=== PATIENT | female | born 1945 | race Two or more races ===

== ENCOUNTER 2023-02-04 23:59 | Outpatient (BNV) | payer MEDICARE, SELFPAY | END 2023-02-06 23:59 | PROVIDERS: Visit Provider Internal Medicine | DX: I48.0 Paroxysmal atrial fibrillation (principal); R78.81 Bacteremia; N18.6 End stage renal disease; Z99.2 Dependence on renal dialysis | CPT/HCPCS: 99223 ==

== ENCOUNTER 2024-01-12 10:39 | Outpatient (AMB) | payer MEDICARE, SELFPAY ==
--- NOTE | 2024-01-12 10:42 | MHC.OFFVIS ---
Vital Signs 01/12/24 10:47 Height 4 ft 9 in Intake Visit Reasons: [employer]/PCP referral for LE swelling Intake Note: [employer] for bilateral LE swelling, Right LE worse than the left LE. She has had swelling for many years but has had pain since April. States she had a large lump on her leg that drained internally and went to [facility] to get flushed and was seen by woundcare after and has had pain since. Also had another lump drained 2 weeks ago at [facility]. Does have bilateral discoloration. Accompanied by: grandson & Daughter Proxy Allergies No Known Allergies Allergy (Verified 01/12/24 10:50) HPI HPI [employer]/PCP referral for LE swelling: Details: Jazmin, a pleasant Japanese-speaking only 78-year-old female patient, is presenting today with a couple of family members for concerns bilateral lower extremity pain, swelling, and cool feet. She does walk at home, with a walker, but only with assistance. Complaints include pain, swelling of lower extremities, cramping, fatigue, and heaviness of the lower extremities. It has been affecting their daily activities including walking and standing. It is noted more so in her left foot. She has a history of end-stage renal disease and does have hemodialysis on Mondays, Wednesdays, and Fridays. She does have diabetes but is a nonsmoker. She is status post seroma removal on the right ankle in the [place] [facility] from approximately 2 weeks ago. Her family has changing her dressings. Patient denies any previous venous surgery or injections. Patient denies any history of DVT/ PE. Patient denies any history of phlebitis. Trial of compression includes - compression stockings with a little relief. They now present for vascular evaluation regarding their varicose veins. [facility] Medical History (Updated 01/12/24 @ 11:14 by Veronica Solo PA-C) Afib Hypothyroidism DM2 (diabetes mellitus, type 2) ESRD (end stage renal disease) Social History (Updated 01/12/24 @ 10:52 by BRADEN Rosado) Patient Tobacco Use Status: Former Tobacco user Review of Systems Const Reports as per HPI and Denies weakness ENT Reports Normal hearing present and Denies dizziness Card Reports as per HPI, Denies chest pain, Denies chest pain at rest, Denies chest pain with activity, Denies dyspnea and Denies dyspnea on exertion Resp Reports as per HPI, Denies cough, Denies dyspnea and Denies dyspnea on exertion GI Reports as per HPI, Denies abdominal pain, Denies nausea and Denies vomiting Musc Denies numbness Skin/Breast Reports as per HPI, Denies erythema and Denies wounds Neuro Reports Normal hearing present, Denies dizziness, Denies numbness, Denies Sensory deficit (Neuro) and Denies weakness Psych Reports no additional complaints Endo Reports no additional complaints Physical Exam Const General: healthy appearing and no acute distress Orientation/consciousness: patient oriented x3 HEENT Head: Yes normal to inspection Ears: hearing grossly normal bilaterally Mouth: Normal oral and palatal mucosa present Resp Effort & Inspection: normal respiratory effort and able to speak in complete sentences Auscultation: clear to auscultation bilaterally Cardio Jugular venous distension: no JVD Rate: regular rate Rhythm: regular rhythm Heart sounds: S1 normal heart sound present and S2 normal heart sound present Bruits: no abdominal aortic bruits, no carotid bruits, no femoral bruits and no renal bruits Peripheral pulses: Peripheral pulses 2+ throughout GI Inspection: Yes normal to inspection Palpation (GI): No Abdominal aortic bruit present Skin General skin exam: no rashes or lesions noted Wounds: no wounds Hair: normal Neuro General: patient oriented x3 Cranial nerves: Yes Normal hearing present Cognition (Neuro): normal cognition Gait exam (Neuro): Normal gait present Motor exam (neuro): 5/5 motor strength present throughout Sensory Exam: No Sensory deficit (Neuro) Extrem Other: Bilateral lower extremities: Discoloration noted from the mid pickard down to the toes. Feet cool to the touch but palpable DP pulses. Trace peripheral edema noted CEAP: C - 4 E - primary A - superficial P - reflux General: Yes normal to inspection, Yes full ROM, Yes capillary refill normal and Yes normal gait Assessment & Plan Assessment & Plan (1) Varicose veins of both lower extremities with inflammation: Code(s): I83.11 - Varicose veins of right lower extremity with inflammation; I83.12 - Varicose veins of left lower extremity with inflammation Category: Medical Plan: Jazmin is presenting today for a referral for ongoing bilateral lower extremity swelling, pain, and coolness to her extremities, particularly her feet. In short, the patient has evidence of venous insufficiency. I have discussed the pathophysiology with the patient. In addition I have provided informational material regarding venous disease to the patient. We have discussed conservative measures including compression, elevation, and exercise. The patient has been using her own compression stockings and did not need a handout about compression. I have taken the liberty of ordering venous insufficiency testing with the patient. They will follow up with me after testing. The patient had an opportunity to ask questions regarding the treatment plan. All questions were answered. No major barriers to understanding were identified. The patient expressed understanding and agreement with the above treatment plan. The patient is aware they should contact our office by phone for worsening of the current condition or the appearance of new symptoms. Thank you for allowing me to participate in the vascular care of this patient. If you have any questions or concerns regarding the treatment for the above condition please do not hesitate to contact me. The office telephone contact is [phone]. This note is constructed using voice recognition software. While every effort has been made to ensure accuracy, servicer coin machines errors may have been included. Thank you for allowing me to participate in the care of your patient. Yours sincerely, ROCÍO Pena Orders: Orders US venous duplex LE BI 1 Week I83.11 - Varicose veins of right lower extremity with inflammation, I83.12 - Varicose veins of left lower extremity with inflammation Coding Level of Care Code New Pt Level 4 (95226) Diagnoses Varicose veins of both lower extremities with inflammation I83.11; I83.12
== END 2024-01-12 11:17 | disposition home or self-care (01) ==
PROVIDERS: Visit Provider Physician Assistant Surgical
DX: I83.11 Varicose veins of right lower extremity with inflammation (principal); I83.12 Varicose veins of left lower extremity with inflammation
CPT/HCPCS: 99204

== ENCOUNTER → 2024-01-12 10:39 | Outpatient (BNVA) | payer MEDICARE, SELFPAY | PROVIDERS: Visit Provider Physician Assistant Surgical | DX: I83.11 Varicose veins of right lower extremity with inflammation (principal); I83.12 Varicose veins of left lower extremity with inflammation | CPT/HCPCS: 99202 ==

== ENCOUNTER 2024-01-28 08:33 | Outpatient (REF) | payer OTHER, SELFPAY ==
--- OUTSIDE RECORDS SUMMARY | 2024-01-28 08:49 | XMS_ITS | Clinical Summary ---
Author Organization Unknown Care Team Providers Care Child Life Assistant Name Role Phone AR DARLING, CORY Unavailable Unavailable KING CHRISTIAN, SUMMER Unavailable Unavailable BENNIE PT [id number], BLANCA Unavailable Unavailable SCIARRATTA OTR [id number], TORO Unavailable Un available Payers Payer Name Policy Type Policy Number Effective Date Expira tion Date MEDICAID [id number] Problems Condition Name Condition Details Condition Category Status Onset Date Resolution Date Last Treatment Date Treating Clinician Comments COVID-19 Active 2 00:00: 00 PNEUMONIA DUE TO CORONAVIRUS DISEASE 2019 Active 02-16 00:00: 00 HYP CHR KIDNEY DISEASE W STAGE 5 CHR KIDNEY DISEASE OR ESRD Active 02-16 00:00: 00 TYPE 2 DIABETES MELLITUS W DIABETIC CHRONIC KIDNEY DISEASE Active 02-16 00:00: 00 END STAGE RENAL DISEASE Active 02-16 00:00: 00 ANEMIA IN CHRONIC KIDNEY DISEASE Active 02-16 00:00: 00 UNSPECIFIED ATRIAL FIBRILLATION Active 02-16 00:00: 00 ATHSCL HEART DISEASE OF [place] CORONARY ARTERY W/O ANG PCTRS Active 02-16 00:00: 00 UNSPECIFIED ASTHMA, UNCOMPLICATE D Active 02-16 00:00: 00 ACUTE RESPIRATORY FAILURE WITH HYPOXIA Active 02-16 00:00: 00 HYPOTHYROIDI SM, UNSPECIFIED Active 02-16 00:00: 00 MILD COGNITIVE IMPAIRMENT OF UNCERTAIN OR UNKNOWN ETIOLOGY Active 02-16 00:00: 00 OTHER CHRONIC PAIN Active 02-16 00:00: 00 RADICULOPATH Y, LUMBAR REGION Active 02-16 00:00: 00 INSOMNIA, UNSPECIFIED Active 02-16 00:00: 00 OBESITY, UNSPECIFIED Active 02-16 00:00: 00 OLD MYOCARDIAL INFARCTION Active 02-16 00:00: 00 ACIDOSIS Active 02-16 00:00: 00 HYPERLIPIDEM IA, UNSPECIFIED Active 02-16 00:00: 00 STONE PAVER (CURRENT) USE OF ANTICOAGULAN TS Active 02-16 00:00: 00 JAIL (CURRENT) USE OF INSULIN Active 02-16 00:00: 00 PERSONAL HISTORY OF COLONIC POLYPS Active 02-16 00:00: 00 PERSONAL HISTORY OF NICOTINE DEPENDENCE Active 02-16 00:00: 00 DEPENDENCE ON RENAL DIALYSIS Active 02-16 00:00: 00 HISTORY OF FALLING Active 02-16 00:00: 00 Allergies, Adverse Reactions, Alerts Allergy Name Allergy Type Status Severity Reaction(s) Onset Date Inactive Date Treating Clinician Comments ATENOLOL Propensity to adverse reactions Active 04-04 17:29: 36 [id number] Propensity to adverse reactions Active 04-04 17:29: 54 SITAGLIPTIN Propensity to adverse reactions Active 04-04 17:30: 05 CALCIUM ACETATE Propensity to adverse reactions Active 04-04 17:30: 18 CALCIUM CARBONATE Propensity to adverse reactions Active 04-04 17:30: 32 Medications Ordered Medication Name Filled Medication Name Start Date Stop Date Current Medication? Ordering Clinician Indication Dosage Frequency Signature (SIG) Comments Components Acetaminoph en Pain Relief 500 mg tablet 04-09 00:00: 00 Yes [id number] PAIN 1-2 tablet EVERY 8 HOURS 1-2 tablet EVERY 8 HOURS (route: oral) Med Classific ation: Analgesic , Anti-infl ammatory or Antipyret ic amlodipine 10 mg tablet 04-09 00:00: 00 Yes [id number] HYPERTENSIO N 1 tablet DAILY 1 tablet DAILY (route: oral) Med Classific ation: Cardiovas cular Therapy Agents atorvastati n 80 mg tablet 04-09 00:00: 00 Yes [id number] HYPERLIPIDE ANGELA 1 tablet DAILY 1 tablet DAILY (route: oral) Med Classific ation: Cardiovas cular Therapy Agents Calci-Chew 500 mg calcium (1,250 mg) tablet 04-09 00:00: 00 Yes [id number] SUPPLEMENT 1 tablet 3 TIMES DAILY 1 tablet 3 TIMES DAILY (route: oral) Med Classific ation: Electroly te Balance-N utritiona l Products calcitriol 0.25 mcg capsule 04-09 00:00: 00 Yes [id number] ESRD 1 capsule DAILY 1 capsule DAILY (route: oral) Med Classific ation: Electroly te Balance-N utritiona l Products clotrimazol e 1 % topical cream 04-09 00:00: 00 Yes [id number] DRY SKIN Per instruc tions NEEDED Per instructio ns NEEDED (route: topical) Med Classific ation: Dermatolo gical Cozaar 100 mg tablet 04-09 00:00: 00 Yes [id number] HYPERTENSIO N 1 tablet DAILY 1 tablet DAILY (route: oral) Med Classific ation: Cardiovas cular Therapy Agents Eliquis 5 mg tablet 04-09 00:00: 00 Yes [id number] A-FIB 1 tablet 2 TIMES DAILY 1 tablet 2 TIMES DAILY (route: oral) Med Classific ation: Hematolog ical Agents famotidine 20 mg tablet 04-09 00:00: 00 Yes [id number] INDEGESTION 1 tablet EVERY 12 HOURS 1 tablet EVERY 12 HOURS (route: oral) Med Classific ation: Gastroint estinal Therapy Agents gabapentin 100 mg capsule 04-09 00:00: 00 Yes [id number] PAIN 1 capsule 2 TIMES DAILY 1 capsule 2 TIMES DAILY (route: oral) Med Classific ation: Central Nervous System Agents Humalog KwikPen (U-100) Insulin 100 unit/mL subcutaneou s 04-09 00:00: 00 Yes [id number] DIABETES MELLITUS 6 unit DAILY 6 unit DAILY (route: subcutaneo us) Med Classific ation: Endocrine insulin glargine (U-100) 100 unit/mL subcutaneou s solution 04-09 00:00: 00 Yes [id number] DIABETES MELLITUS 14 unit EVERY PM 14 unit EVERY PM (route: subcutaneo us) Med Classific ation: Endocrine levothyroxi ne 150 mcg tablet 04-09 00:00: 00 Yes [id number] HYPOTHYROID ISM 1 tablet DAILY 1 tablet DAILY (route: oral) Med Classific ation: Endocrine loratadine 10 mg tablet 04-09 00:00: 00 Yes [id number] ALLERGIES 1 tablet DAILY 1 tablet DAILY (route: oral) Med Classific ation: Respirato ry Therapy Agents losartan 25 mg tablet 04-09 00:00: 00 Yes [id number] HYPERTENSIO N 1 tablet DAILY 1 tablet DAILY (route: oral) Med Classific ation: Cardiovas cular Therapy Agents sevelamer HCl 800 mg tablet 04-09 00:00: 00 Yes [id number] END STAGE RENAL DISEASE 3 tablet 3 TIMES DAILY 3 tablet 3 TIMES DAILY (route: oral) Med Classific ation: Genitouri nary Therapy Stool Softener 100 mg capsule 04-09 00:00: 00 Yes [id number] CONSTIPATIO N 1 capsule BEDTIME 1 capsule BEDTIME (route: oral) Med Classific ation: Gastroint estinal Therapy Agents Tradjenta 5 mg tablet 04-09 00:00: 00 Yes [id number] DIABETES MELLITUS 1 tablet DAILY 1 tablet DAILY (route: oral) Med Classific ation: Endocrine Virt-Caps 1 mg capsule 04-09 00:00: 00 Yes [id number] SUPPLEMENT 1 capsule DAILY 1 capsule DAILY (route: oral) Med Classific ation: Electroly te Balance-N utritiona l Products Vitamin D2 1,250 mcg (50,000 unit) capsule 04-09 00:00: 00 Yes [id number] SUPPLEMENT 1 capsule WEEKLY 1 capsule WEEKLY (route: oral) Med Classific ation: Electroly te Balance-N utritiona l Products O2 - OXYGEN 04-09 00:00: 00 Yes [id number] RESPIRATORY DECOMPENSAT ION 2 Liter NEEDED 2 Liter NEEDED (route: Oxygen) Med Classific ation: Medical Oxygen Vital Signs Vital Name Observation Time Observation Value Commen ts Temperature 2020-05-23 11:25:45.000 97 [degF] Temperature 2020-05-02 15:29:00.000 98 [degF] Temperature 2020-05-02 12:59:21.000 97.4 [degF] Temperature 2020-04-27 10:08:46.000 97 [degF] Temperature 2020-04-20 10:37:50.000 97.2 [degF] Temperature 2020-04-18 10:26:44.000 97.1 [degF] Temperature 2020-04-13 09:41:21.000 97.7 [degF] Temperature 2020-04-09 13:08:35.000 97 [degF] Pulse 2020-05-23 11:28:25.000 60 /min Pulse 2020-05-23 11:27:13.000 40 /min Pulse 2020-05-02 15:29:00.000 78 /min Pulse 2020-05-02 12:59:27.000 66 /min Pulse 2020-04-27 10:08:53.000 89 /min Pulse 2020-04-20 10:37:25.000 90 /min Pulse 2020-04-18 10:27:38.000 92 /min Pulse 2020-04-13 09:43:42.000 90 /min Pulse 2020-04-09 13:08:57.000 68 /min O2 Saturation (%) 2020-05-23 11:24:43.000 97 % O2 Saturation (%) 2020-05-02 12:59:41.000 98 % O2 Saturation (%) 2020-04-27 10:09:09.000 96 % O2 Saturation (%) 2020-04-18 10:28:48.000 95 % O2 Saturation (%) 2020-04-13 09:43:49.000 96 % O2 Saturation (%) 2020-04-09 13:09:03.000 98 % Respirations 2020-05-23 11:25:15.000 14 /min Respirations 2020-05-02 15:29:00.000 16 /min Respirations 2020-05-02 12:59:32.000 16 /min Respirations 2020-04-27 10:09:00.000 16 /min Respirations 2020-04-20 10:37:58.000 18 /min Respirations 2020-04-18 10:26:51.000 16 /min Respirations 2020-04-13 09:41:26.000 16 /min Respirations 2020-04-09 13:08:46.000 16 /min Systolic Blood Pressure 2020-05-23 11:25:07.000 138 mm [Hg] Systolic Blood Pressure 2020-05-02 15:30:00.000 136 mm [Hg] Systolic Blood Pressure 2020-05-02 13:01:26.000 122 mm [Hg] Systolic Blood Pressure 2020-04-27 10:11:43.000 132 mm [Hg] Systolic Blood Pressure 2020-04-20 10:37:13.000 140 mm [Hg] Systolic Blood Pressure 2020-04-18 10:28:58.000 142 mm [Hg] Systolic Blood Pressure 2020-04-13 09:43:17.000 144 mm [Hg] Systolic Blood Pressure 2020-04-09 13:10:38.000 148 mm [Hg] Diastolic Blood Pressure 2020-05-23 11:25:07.000 64 mm [Hg] Diastolic Blood Pressure 2020-05-02 15:30:00.000 68 mm [Hg] Diastolic Blood Pressure 2020-05-02 13:01:26.000 70 mm [Hg] Diastolic Blood Pressure 2020-04-27 10:11:43.000 60 mm [Hg] Diastolic Blood Pressure 2020-04-20 10:37:13.000 80 mm [Hg] Diastolic Blood Pressure 2020-04-18 10:28:58.000 60 mm [Hg] Diastolic Blood Pressure 2020-04-13 09:43:17.000 70 mm [Hg] Diastolic Blood Pressure 2020-04-09 13:10:38.000 60 mm [Hg] Plan of Treatment Planned Activity Planned Date Details Comments Future Scheduled Test SKILLED NU RSE TO MONITOR/ASSESS AND INSTRUCT/REINFORCE PATIENT REGARDING PHARMACOLOGIC, NON PHARMACOLOGIC AND OTHER PAIN CONTROL MEASURES. [code = SKILLED NURSE TO MONITOR/ASSESS AND INSTRUCT/REINFORCE PATIENT REGARDING PHARMACOLOGIC, NON PHARMACOLOGIC AND OTHER PAIN CONTROL MEASURES.] Future Scheduled Test PHYSICAL T HERAPIST TO EVALUATE/ASSESS AND DEVELOP PHYSICAL THERAPY PLAN OF CARE TO BE SIGNED BY THE PHYSICIAN. [code = PHYSICAL THERAPIST TO EVALUATE/ASSESS AND DEVELOP PHYSICAL THERAPY PLAN OF CARE TO BE SIGNED BY THE PHYSICIAN.] Future Scheduled Test SKILLED NU RSE TO EVALUATE PATIENT AND DEVELOP PLAN OF CARE TO BE COUNTER SIGNED BY PHYSICIAN. [code = SKILLED NURSE TO EVALUATE PATIENT AND DEVELOP PLAN OF CARE TO BE COUNTER SIGNED BY PHYSICIAN.] Future Scheduled Test OCCUPATION AL THERAPIST TO EVALUATE PATIENT FOR OT SERVICES AND DEVELOP PLAN OF CARE FOR PHYSICIAN SIGNATURE TO BE SIGNED BY PHYSICIAN. [code = OCCUPATIONAL THERAPIST TO EVALUATE PATIENT FOR OT SERVICES AND DEVELOP PLAN OF CARE FOR PHYSICIAN SIGNATURE TO BE SIGNED BY PHYSICIAN.] Future Scheduled Test SKILLED NU RSE TO PROVIDE INSTRUCTIONS OF MANAGEMENT OF RESPIRATORY DISEASE IN THE HOME SETTING, INCLUDING DIET, MEDICATION THERAPY AND ACTIVITIES PERMITTED / RESTRICTIONS. [code = SKILLED NURSE TO PROVIDE INSTRUCTIONS OF MANAGEMENT OF RESPIRATORY DISEASE IN THE HOME SETTING, INCLUDING DIET, MEDICATION THERAPY AND ACTIVITIES PERMITTED / RESTRICTIONS.] Future Scheduled Test SKILLED NU RSE MAY INSTRUCT/REINFORCE NEW AND CHANGED MEDICATIONS AND MEDICATION REGIMEN. [code = SKILLED NURSE MAY INSTRUCT/REINFORCE NEW AND CHANGED MEDICATIONS AND MEDICATION REGIMEN.] Future Scheduled Test SKILLED NU RSE TO PROVIDE MONITORING FOR THE PRESENCE OF SKIN LESIONS ON THE LOWER EXTREMITIES AND TEACHING/REINFORCEMENT REGARDING PROPER DIABETIC FOOT CARE. [code = SKILLED NURSE TO PROVIDE MONITORING FOR THE PRESENCE OF SKIN LESIONS ON THE LOWER EXTREMITIES AND TEACHING/REINFORCEMENT REGARDING PROPER DIABETIC FOOT CARE.] Future Scheduled Test SKILLED NU RSE TO INSTRUCT PATIENT / CAREGIVER ON PNEUMONIA TO INCLUDE DISEASE PROCESS, SIGNS AND SYMPTOMS, COMPLICATIONS AND MANAGEMENT. [code = SKILLED NURSE TO INSTRUCT PATIENT / CAREGIVER ON PNEUMONIA TO INCLUDE DISEASE PROCESS, SIGNS AND SYMPTOMS, COMPLICATIONS AND MANAGEMENT.] Future Scheduled Test SKILLED NU RSE TO REVIEW HOME SAFETY EACH VISIT; INSTRUCT PATIENT/CAREGIVER IN MEASURES TO IMPROVE HOME SAFETY AND PREVENT FALLS. [code = SKILLED NURSE TO REVIEW HOME SAFETY EACH VISIT; INSTRUCT PATIENT/CAREGIVER IN MEASURES TO IMPROVE HOME SAFETY AND PREVENT FALLS.] Future Scheduled Test HOME [facility] H AGENCY MAY ACCEPT ORDERS FROM ALL TREATING AND CONSULTING PHYSICIANS. [code = HOME HEALTH AGENCY MAY ACCEPT ORDERS FROM ALL TREATING AND CONSULTING PHYSICIANS.] Future Scheduled Test SKILLED NU RSE TO OBTAIN 02 SATS VIA PULSE OXIMETER PRN. [code = SKILLED NURSE TO OBTAIN 02 SATS VIA PULSE OXIMETER PRN.] Future Scheduled Test SKILLED NU RSE TO INSTRUCT ON HYPERTENSION TO INCLUDE DISEASE PROCESS, SIGNS AND SYMPTOMS, COMPLICATIONS, AND MANAGEMENT. [code = SKILLED NURSE TO INSTRUCT ON HYPERTENSION TO INCLUDE DISEASE PROCESS, SIGNS AND SYMPTOMS, COMPLICATIONS, AND MANAGEMENT.] Future Scheduled Test SKILLED NU RSE TO INSTRUCT REGARDING OXYGEN MANAGEMENT INCLUDING ADMINISTRATION, CARE OF EQUIPMENT AND SAFETY. [code = SKILLED NURSE TO INSTRUCT REGARDING OXYGEN MANAGEMENT INCLUDING ADMINISTRATION, CARE OF EQUIPMENT AND SAFETY.] Goal 2020-05-23 Patient Goal - T O GET OFF OXYGEN AND WALK BETTER Goal Provider Goal - PATIENT / CAREGIVER WILL VERBALIZE TEACH BACK OF AT LEAST 3 PHARMACOLOGIC AND NON-PHARMACOLOGIC PAIN MANAGEMENT BY 04/27/2020 Goal Provider Goal - A PHYSICAL THERAPY PLAN OF CARE WILL BE ORDERED BY PHYSICIAN AND PROVIDED BY PHYSICAL THERAPY BY 04/13/20. Goal Provider Goal - A PLAN OF CARE WILL BE ESTABLISHED THAT MEETS ALL PATIENT'S GROUP HOME NEEDS AND COUNTER SIGNED BY PHYSICIAN. Goal Provider Goal - OCCUPATIONAL THERAPY EVALUATION WILL BE COMPLETED. PLAN OF CARE WILL BE ORDERED BY PHYSICIAN AND PROVIDED BY OCCUPATIONAL THERAPIST BY 04/13/20 Goal Provider Goal - PATIENT / CAREGIVER WILL VERBALIZE TEACH BACK OF DISEASE PROCESS AND 3 REPORTABLE SYMPTONS MEASURES TO PREVENT EXACERBATION BY 05/17/20 Goal Provider Goal - PATIENT / CAREGIVER WILL ADMINISTER MEDICATIONS PRESCRIBED EVIDENCED MEDICATION RECONCILIATION AND NO ADVERSE EFFECTS FROM MEDICATION ERRORS NOTED BY 05/17/20 Goal Provider Goal - CHANGES IN PATIENT CO-MORBID STATUS WILL BE PROMPTLY IDENTIFIED AND REPORTED TO THE PHYSICIAN. PATIENT/CAREGIVER VERBALIZE/DEMONSTRATE ABILITY TO PROPERLY MANAGE DIABETIC FOOT CARE BY 05/17/20 Goal Provider Goal - PATIENT/ CAREGIVER WILL VERBALIZE / DEMONSTRATE ADEQUATE KNOWLEDGE OF PNEUMONIA. BY VERBALIZING TEACH BACK OF DISEASE PROCESS AND 3 REPORTABLE SYMPTONS AND 3 TREATMENT MEASURES TO MANAGE CONDITION BY 04/27/2020 Goal Provider Goal - PATIENT/CAREGIVER WILL VERBALIZE/DEMONSTRATE UNDERSTANDING OF FALL PREVENTION/SAFETY INCLUDING IDENTIFED RISKS AND MEASURES TO MITIGATE RISK BY 05/17/20 Goal Provider Goal - ADDITIONAL ORDERS WILL BE RECEIVED FROM ALTERNATE PHYSICIAN IN A TIMELY MANNER THROUGH BY06/05/2020 Goal Provider Goal - PATIENT WILL DEMONSTRATE OXYGEN SATURATION > 88% OR TO PATIENT'S OPTIMAL LEVEL BY 04/30/20 Goal Provider Goal - PATIENT/CAREGIVER VERBALIZE/DEMOSTRATE ABILITY TO CARE FOR HYPERTENSION BY VERBALIZING 3 REPORTABLE SYMPTONS, 3 RISK FACTORS AND FOOD WITH HIGH SODIUM AND HIGH FAT CONTENT BY 05/17/20 Goal Provider Goal - PATIENT / CAREGIVER WILL DEMONSTRATE ABILITY TO MANAGE OXYGEN THERAPY IN THE HOME SETTING BY END OF EPISODE. Reason for Visit MINIMUM ASSIST WITH TRANSFER/AMBULATION/ADLS Encounters Start Date/Time End Date/Time Encounter Type Admission Type Attending Clinicians Care Facility Care Department Encounter ID Discharge Date Discharge Status Discharge Condition Discharge Reason Percent Goals Met 2020-04-09 00:00:00 2020-05-23 00:00:00 Outpatient NEW ADMISSION [facility] [id number] 00:00:00 DISCHARGE TO HOME OR SELF CARE MINIMUM ASSIST WITH TRANSFER/A MBULATION/ ADLS CLIENT NO LONGER REQUIRES SKILLED CARE 48.61
== END 2024-01-28 08:34 | disposition home or self-care (01) ==
LOC: HO.US 08:33
PROVIDERS: PCP Internal Medicine; Visit Provider Physician Assistant Surgical
DX: I83.11 Varicose veins of right lower extremity with inflammation (principal); I83.12 Varicose veins of left lower extremity with inflammation
CPT/HCPCS: 93970